=== PATIENT | male | born 1960 ===

== ENCOUNTER 2019-03-17 10:18 | Emergency (ER) | payer SELFPAY ==
[2019-03-17 10:25] VITALS: TEMP 98.6
[2019-03-17] MEDS ORDERED: Lidocaine 5% Patch TD STA (11:08)
[2019-03-17] MEDS ORDERED: Naproxen 550 mg Tab PO STA (11:08)
[2019-03-17] MEDS ORDERED: Lidocaine 5% Patch TD ONE (11:12)
[2019-03-17] MEDS ORDERED: Naproxen 550 mg Tab PO ONE (11:12)
--- NOTE | 2019-03-17 11:33 | C.PDOC ---
History Of Present Illness 58 y/o male presents to ED complaining of lower neck pain that radiates to shoulder down to his arm for the past week. He rates the pain 6/10 and has been taking over the counter medications with little relief. Patient has seen his PMD who told him that he likely has arthritis. Patient also reports of hip and knee pain. Denies any trauma or injury, weakness, numbness, tingling, calf pain, or recent travel. 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 Patient is right hand dominant. Chief Complaint (Nursing): Back Pain History Per: Patient History/Exam Limitations: no limitations Onset/Duration Of Symptoms: Days Current Symptoms Are (Timing): Still Present Past Medical History Reviewed: Historical Data, Nursing Documentation, Vital Signs Vital Signs: Last Vital Signs Temp 98.6 F 03/17/19 10:22 Pulse 86 03/17/19 10:22 Resp 18 03/17/19 10:22 BP 147/86 03/17/19 10:22 Pulse Ox 97 03/17/19 10:22 Primary Care Provider: Sander Estrada - Medical History PMH: Arthritis, HTN, Hypercholesterolemia Denies: Chronic Kidney Disease Family History: States: No Known Family Hx - Social History Hx Alcohol Use: No Hx Substance Use: No - Immunization History Hx Tetanus Toxoid Vaccination: No Hx Influenza Vaccination: No Hx Pneumococcal Vaccination: No Review Of Systems Constitutional: Negative for: Fever, Chills Gastrointestinal: Negative for: Nausea, Vomiting Musculoskeletal: Positive for: Neck Pain (lower neck pain radiating to shoulder and arm), Other (hip and knee pain). Negative for: Back Pain Neurological: Negative for: Weakness, Numbness (or tingling), Headache Physical Exam - Physical Exam Appears: Non-toxic, No Acute Distress Skin: Warm, Dry Head: Atraumatic, Normacephalic Eye(s): bilateral: Normal Inspection Oral Mucosa: Moist Neck: Normal ROM, Other (slight tenderness to palpation at the nape of the back) Chest: Symmetrical Cardiovascular: Rhythm Regular Respiratory: Normal Breath Sounds, No Wheezing Back: No CVA Tenderness Extremity: Tenderness (right shoulder no ecchymosis, erythema, or edema, full ROM), No Pedal Edema, No Calf Tenderness, Capillary Refill (less than 2 seconds), No Deformity, Other (full ROM of hip; knee tenderness to palpation, no edema, no ecchymosis, no erythema) Extremity: Bilateral: Atraumatic, Normal Color And Temperature, Normal ROM Pulses: Left Radial: Normal, Right Radial: Normal Neurological/Psych: Oriented x3, Normal Speech, Normal Motor, Normal Sensation ED Course And Treatment O2 Sat by Pulse Oximetry: 97 (RA) Pulse Ox Interpretation: Normal - Other Rad hip/pelvis X-Ray: Viewed By Me, Read By Radiologist Interpretation: Accession No. : [id number]. Patient Name / ID : GAMAL RAMIREZ / [id number]. Exam Date : 03/17/2019 11:11:19 ( Approved ). Study Comment : Sex / Age : M / 58Y. Creator : Damon Lawson MD. Dictator : Damon Lawson MD. Private Equity Analyst : Screen Printing Cloth Spreader : Damon Lawson MD. Approver2 : Report Date : 03/17/2019 14:54:31. My Comment : . Date of service: 03/17/2019. PROCEDURE: Pelvis right hip. HISTORY: Pain. COMPARISON: No prior study available comparison. TECHNIQUE: AP view of the pelvis including both hips as well as frogleg lateral view right hip performed. FINDINGS: No evidence of acute displaced fracture nor dislocation. The osseous structures intact. Both femoral heads appropriately located within the respective acetabula. Degenerative changes both hip joints with mild joint space narrowing and spurring of the superolateral margins of both acetabular roofs right greater than left. IMPRESSION: No acute fractures. Mild degenerative osteoarthritis. right knee X-Ray: Viewed By Me, Read By Radiologist Interpretation: Accession No. : [id number]. Patient Name / ID : GAMAL RAMIREZ / [id number]. Exam Date : 03/17/2019 11:11:27 ( Approved ). Study Comment : Sex / Age : M / 58Y. Creator : Damon Lawson MD. Dictator : Damon Lawson MD. Private Equity Analyst : Screen Printing Cloth Spreader : Damon Lawson MD. Approver2 : Report Date : 03/17/2019 14:45:06. My Comment : . Date of service: 03/17/2019. PROCEDURE: Right Knee Radiographs. HISTORY: pain. COMPARISON: No prior study available comparison. TECHNIQUE: 2 views obtained. FINDINGS: BONES: Slightly high-riding patella likely positional. JOINTS: No significant osteoarthritis. JOINT EFFUSION: No significant joint effusion. OTHER FINDINGS: None. IMPRESSION: No evidence of acute displaced fracture nor dislocation. Medical Decision Making Medical Decision Making: Plan: --Knee XR and Hip XR ordered and reviewed- OA --Naproxen 550 mg PO and Flexeril 5 mg PO --Lidoderm pathc applied On reassessment, patient notes some improvement and would like to be discharge he was advised to continue prescribed meds and follow up with PMD Patient verbalizes understanding and is in agreement with plan. Patient is stable for discharge. Disposition Counseled Patient/Family Regarding: Studies Performed, Diagnosis, Need For Followup, Rx Given - Disposition Referrals: Sander Estrada MD [Medical Doctor] - Derik Perez MD [Staff Provider] - Disposition: HOME/ ROUTINE Disposition Time: 11:59 Condition: STABLE Additional Instructions: continue meds as prescribed rest, ice, compression, and elevation follow up with PMD in 1-2 days Return to ED if symptoms worsen Prescriptions: Cyclobenzaprine [Flexeril] 10 mg PO TID PRN #15 tab PRN Reason: Muscle Spasm Lidocaine 5% [Lidoderm] 1 ea TD PRN PRN #30 patch PRN Reason: Pain, Moderate (4-7) Naproxen [Naprosyn] 500 mg PO BID #30 tablet Instructions: Hip Pain in Older People, Generalized Neck Pain (DC), Knee Pain Forms: [facility] ([place]otho) - Clinical Impression Clinical Impression: Neck pain, Shoulder pain, Right hip pain, Right knee pain - PA / ARTIFICIAL TEETH INSPECTOR / Resident Statement MD/DO has reviewed & agrees with the documentation as recorded. - Scribe Statement The provider has reviewed the documentation as recorded by the [place] [place] All medical record entries made by the [facility] were at my direction and personally dictated by me. I have reviewed the chart and agree that the record accurately reflects my personal performance of the history, physical exam, medical decision making, and the department course for this patient. I have also personally directed, reviewed, and agree with the discharge instructions and disposition.
[2019-03-17 12:27] VITALS: BP 142/71; PULSE 72; RESP 16
[2019-03-17 12:31] VITALS: O2SAT 97
--- NOTE | 2019-03-17 14:48 | RAD ---
Date of service: 03/17/2019 PROCEDURE: Right Knee Radiographs. HISTORY: pain COMPARISON: No prior study available comparison TECHNIQUE: 2 views obtained. FINDINGS: BONES: Slightly high-riding patella likely positional. JOINTS: No significant osteoarthritis. JOINT EFFUSION: No significant joint effusion OTHER FINDINGS: None. IMPRESSION: No evidence of acute displaced fracture nor dislocation.
--- NOTE | 2019-03-17 14:58 | RAD ---
Date of service: 03/17/2019 PROCEDURE: Pelvis right hip HISTORY: Pain COMPARISON: No prior study available comparison TECHNIQUE: AP view of the pelvis including both hips as well as frogleg lateral view right hip performed. FINDINGS: No evidence of acute displaced fracture nor dislocation. The osseous structures intact. Both femoral heads appropriately located within the respective acetabula. Degenerative changes both hip joints with mild joint space narrowing and spurring of the superolateral margins of both acetabular roofs right greater than left IMPRESSION: No acute fractures. Mild degenerative osteoarthritis.
== END 2019-03-17 12:25 | disposition home or self-care (01) ==
LOC: C.ER 10:18
DX: M54.2 Cervicalgia (principal); M25.511 Pain in right shoulder; M25.551 Pain in right hip; M25.561 Pain in right knee